=== PATIENT | female | born 1975 | race Hispanic/Latino ===

== ENCOUNTER 2018-09-22 01:41 | Emergency (ER) | payer SELFPAY ==
[2018-09-22 01:56] VITALS: RESP 18; O2SAT 97
[2018-09-22] MEDS ORDERED: Tetanus/Diphtheria Toxoids 0.5 ml Syringe IM ONE ×2 (02:48→03:40)
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
[2018-09-22 06:55] VITALS: BP 120/76; PULSE 78; TEMP 98
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
--- NOTE | 2018-09-22 11:37 | RAD ---
Right thumb three views HISTORY: Injury. Comparison: None available. Findings: No evidence for acute displaced fracture or dislocation of the right 1st digit. On the oblique view, there is some mild productive change at ulnar sided cortex of the trapezium, nonspecific. This is not well appreciated on the additional sequences. Impression: No evidence for acute displaced fracture or dislocation of the right 1st digit. On the oblique view, there is some mild productive change at ulnar sided cortex of the trapezium, nonspecific. This is not well appreciated on the additional sequences. If pain persists, consider correlation with MRI.
== END 2018-09-22 07:09 | disposition home or self-care (01) ==
LOC: C.ER 01:41
DX: S02.69XA Fracture of mandible of other specified site, initial encounter for closed fracture (principal); S01.81XA Laceration without foreign body of other part of head, initial encounter; S63.601A Unspecified sprain of right thumb, initial encounter; Y08.89XA Assault by other specified means, initial encounter